=== PATIENT | male | born 1975 | race Caucasian/White ===

== ENCOUNTER 2018-07-18 08:51 | Observation (INO) ==
[2018-07-18] MEDS ORDERED: 0.9 % Sodium Chloride 1,000 ML IVC ONE (09:40)
[2018-07-18] MEDS ORDERED: Ondansetron 4 MG/2 ML VIAL IVP ONE (09:40)
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
[2018-07-18 10:46] LABS: Basophils # 0.1 K/mcL (0.0-0.2); Basophils % 1.1 %; Eosinophils # 0.6 K/mcL (0.0-0.6); Eosinophils % 10.6 %; Hematocrit 42.9 % (37.5-50.1); Hemoglobin 14.7 g/dL (12.9-16.9); Immature Granulocytes % 0.4 % (0-4); Lymphocytes # 1.5 K/mcL (0.6-4.6); Lymphocytes % 28.6 %; Mean Corpuscular HGB Conc 34.3 g/dL (31.6-35.5); Mean Corpuscular Hemoglobin 31.5 pg (28.0-33.3); Mean Corpuscular Volume 92.1 fL (83.0-100.0); Mean Platelet Volume 9.5 fL (9.4-12.4); Monocytes # 0.5 K/mcL (0.0-1.3); Monocytes % 9.7 %; Neutrophils # 2.7 K/mcL (1.6-8.9); Platelet Count 195 K/mcL (140-400); Red Blood Count 4.66 M/mcL (4.19-5.50); Red Cell Distribution Width 12.4 % (11.5-14.5); Segmented Neutrophils % 49.6 %
[2018-07-18 10:50] LABS: Prothrombin Time 11.2 Seconds (9.4-12.1)
[2018-07-18 10:53] LABS: Activated Partial Thrombo Time 30.4 Seconds (26.0-36.0)
[2018-07-18 11:07] LABS: Alanine Aminotransferase 31 Units/L (7-52); Albumin 3.7 g/dL (3.5-5.7); Albumin/Globulin Ratio 1.9 (1.1-2.2); Alkaline Phosphatase 34 Units/L (34-104); Aspartate Amino Transferase 25 Units/L (13-39); BUN/Creatinine Ratio 14 (6-26); Bilirubin,Direct 0.1 mg/dL (0.0-0.2); Bilirubin,Indirect 0.3 mg/dL (0.0-1.2); Bilirubin,Total 0.4 mg/dL (0.3-1.0); Blood Urea Nitrogen 13 mg/dL (6-20); Carbon Dioxide 25 mEq/L (23-29); Chloride 109 mEq/L (98-107); Glucose 101 mg/dL (70-105); Osmolality,Calculated 290 (280-300); Sodium 140 mEq/L (136-145); Total Protein 5.7 g/dL (6.4-8.9); eGFR For Non-African Americans > 60 (> 60)
--- NOTE | 2018-07-18 13:34 | Internal Med History&Physical ---
Date of Encounter: 07/18/18 Time of Encounter: 13:00 Internal Medicine - H&P: HPI Chief complaint: Rectal bleeding Admitted From: Home Plans for Post Hospital Care: Home History of present illness: Mr. Walker is a 43 year old male with significant medical history. He reports having hypertension but is not treated for it. He presents to the emergency department with 4 episodes of bright red rectal bleeding this morning. He has had 4 other episodes here. He denies actual pain but states that he is uncomfortable in his lower abdomen. He also reports feeling tired. No chest pain, nausea, vomiting, diarrhea, dizziness or lightheadedness. He denies fever, chills, sick contacts. He denies knowledge of internal or external hemorrhoids. Last EGD was approximately 20 years ago when he was told that he had multiple ulcers. Past Med Surg Social Fam HX - Past Medical History Medical history: no medical history Additional medical history: Says possibly has hypertension Psychiatric history: no psych history - Past Surgical History Surgical History: no surgical history Additional surgical history: Bowel obstruction - Social History Smoking Status: Never smoker Smokeless Tobacco Status: No Alcohol use: occasionally Drug use: none Internal Medicine - H&P: Meds Diclofenac Sodium [Voltaren] 50 mg PO BID #30 tablet. 09/09/17 [Rx] Allergy/AdvReac Type Severity Reaction Status Date / Time morphine Allergy Rash Verified 09/09/17 08:58 All Systems PM: A 10-system review of systems was performed and is negative for pertinent findings except as documented above in the HPI. - Constitutional Constitutional: fatigue, no anorexia, no chills, no fever(s), no night sweats, no weakness - EENT Eyes: no blurry vision, no diplopia, no other visual disturbances Ears: no decreased hearing, no ear discharge, no ear pain Nose, mouth and throat: no dental pain, no mouth pain, no nasal congestion, no nasal discharge, no sinus pain, no sinus pressure, no sore throat - Cardiovascular Cardiovascular ROS IM: no chest pain, no diaphoresis, no dyspnea, no dyspnea on exertion, no edema, no irregular heart rhythm, no lightheadedness, no palpitations, no syncope - Respiratory Respiratory: no cough, no dyspnea, no hemoptysis, no dyspnea on exertion, no wheezing, no stridor, no chest congestion, no pain with cough - Gastrointestinal Gastrointestinal: melena, no abdominal pain, no change in bowel habits, no change in stool character, no coffee ground emesis, no constipation, no cramping, no diarrhea, no nausea, no vomiting - Genitourinary Genitourinary ROS male: no urinary frequency, no urinary hesitancy, no urinary incontinence, no urinary urgency - Musculoskeletal Musculoskeletal ROS IM: no back pain, no limited range of motion, no numbness, no tingling - Integumentary Integumentary IM: no new lesions, no rash - Neurological Neurological ROS: no abnormal hearing, no abnormal movements, no abnormal speech, no dizziness, no focal weakness, no headache(s), no vertigo - Psychiatric Psychiatric: no anxiety, no depression - Constitutional Vitals: Temp Pulse Resp BP Pulse Ox 98.3 F 96 18 137/110 97 07/18/18 09:04 07/18/18 13:30 07/18/18 13:30 07/18/18 13:30 07/18/18 13:30 General appearance: Present: cooperative, A&O X 3, pleasant, no acute distress, answers questions appropriately Exam: General: Pt resting quietly on bed, no distress. Skin: pwd, no rashes, lesions, redness Neurological: Pt is alert and awake, oriented x 3, Speech is clear, PERRLA, EOMI, no nystagmus, no pronator drift. strength equal x 4 extremities HEENT: mucous mumbranes moist, no conjuctival pallor Neck: supple, no tracheal deviation, no lymphadenopathy, tenderness, no thyromegaly Heart: S1S2 heard without gallops, clicks, murmurs, no bradycardia or tachycardia, pt has no peripheral edema, pedal and radial pulses palpable bilaterally. Lungs: clear throughout without wheezing, rales, or ronchi, respirations are unlabored Abdomen: soft and non tender with bowel sound present, no hepatomegaly. Psych: Normal affect with good eye contact - Head Head exam: Present: atraumatic, normal inspection, normocephalic - Eye Eye exam: Present: EOMI, normal appearance, PERRL. Absent: nystagmus - ENT ENT exam: Present: mucous membranes moist, normal exam, normal external ear exam - Neck Neck exam general surgery: Present: normal inspection. Absent: lymphadenopathy, tenderness - Respiratory Respiratory exam: Present: chest wall tenderness, CTAB. Absent: decreased breath sounds, rales, respiratory distress, rhonchi, stridor, wheezes - Cardiovascular Cardiovascular exam: Present: RRR, +S1, +S2. Absent: diastolic murmur, distant heart sounds, irregular rhythm, systolic murmur - GI/Abdominal GI/Abdominal exam: Present: normal bowel sounds, soft. Absent: hepatomegaly, tenderness - Expanded GI/Abdominal Exam GI/Abdominal exam expanded: Absent: Calderón's sign, Rovsing's sign, tenderness at McBurney's Point - Extremities Exam Extremities exam: Present: full ROM, normal inspection, warm. Absent: calf tenderness, pedal edema, tenderness - Back Exam Back exam: Present: full ROM, normal inspection. Absent: tenderness - Neurological Exam Neurological exam: Present: alert, CN II-XII intact, oriented X3, no focal deficits, strengths equal and symetr throughout. Absent: pronater drift, facial droop, speech deficit - Skin Skin exam: Present: dry, intact, normal color, warm. Absent: petechiae, rash Internal Med - H&P Results - Labs CBC & Chem 7: 07/18/18 10:20 07/18/18 10:22 Labs: Short CBC 07/18/18 Range/Units 10:20 WBC 5.4 (4.3-11.1) K/mcL Hgb 14.7 (12.9-16.9) g/dL Hct 42.9 (37.5-50.1) % Plt Count 195 (140-400) K/mcL Neutrophils # 2.7 (1.6-8.9) K/mcL BMP 07/18/18 10:22 Sodium 140 Potassium 4.0 Chloride 109 H Carbon Dioxide 25 BUN 13 Creatinine 0.90 Glucose 101 Calcium 8.0 L Liver Function 07/18/18 Range/Units 10:22 Total Bilirubin 0.4 (0.3-1.0) mg/dL Direct Bilirubin 0.1 (0.0-0.2) mg/dL AST 25 (13-39) Units/L ALT 31 (7-52) Units/L Alkaline Phosphatase 34 (34-104) Units/L Albumin 3.7 (3.5-5.7) g/dL - Assessment and plan (1) Hypertension Current Visit: Yes Status: Acute Assessment and plan: Chronic hypertension. Untreated. Lisinopril 5mg po daily. Monitor vitals per admission orders. Qualifiers: Hypertension type: unspecified Qualified Code(s): I10 - Essential (primary) hypertension (2) Fatigue Current Visit: Yes Status: Acute Assessment and plan: Fatigue, onset today and likely secondary to rectal bleeding. IVF hydration Monitor H&H Monitor vitals Up with assistance Qualifiers: Fatigue type: unspecified Qualified Code(s): R53.83 - Other fatigue (3) Rectal bleeding Current Visit: Yes Status: Acute Assessment and plan: 4 episodes of bright red bleeding at home, 4 here in the ED today. No prior history of same. Hgb currently stable, vitals stable. Monitor H&H, vitals Consult GI for EGD- NPO after midnight Stool occult blood Transfuse if Hgb < 7.0 (4) DVT prophylaxis Current Visit: Yes Status: Acute Assessment and plan: SCDs, no pharmacologic prophylaxis due to GIB. - Time Spent With Patient Total time spent is greater than 50% in coordination of care (as documented) at patient's floor/unit and/or counseling patient:
[2018-07-18] MEDS ORDERED: Naloxone 0.4 MG/ML INJ IVP PRN (13:49)
[2018-07-18] MEDS ORDERED: Acetaminophen 325 MG TABLET PO PRN (13:49)
[2018-07-18] MEDS ORDERED: Ondansetron 4 MG/2 ML VIAL IVP PRN (13:53)
--- NOTE | 2018-07-18 14:05 | Event Note ---
Date of Encounter: 07/18/18 Time of Encounter: 13:00 Chart reviewed, discussed with Dr Grant. Will prep for colonoscopy tomorrow. Full consult tomorrow.
[2018-07-18] MEDS: 0.9 % Sodium Chloride 1,000 ML IVC SCH (16:27)
[2018-07-18] MEDS ORDERED: SODIUM CHLORIDE/NAHCO3/KCL/PEG 4,000 ML SOLN.RECON PO ONE (17:00)
[2018-07-18 17:54] LABS: Hematocrit 40.7 % (37.5-50.1); Hemoglobin 14.2 g/dL (12.9-16.9)
[2018-07-18 22:39] LABS: Hematocrit 40.5 % (37.5-50.1); Hemoglobin 13.6 g/dL (12.9-16.9)
--- NOTE | 2018-07-18 23:36 | Electrocardiograph Report ---
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
[2018-07-19] MEDS: 0.9 % Sodium Chloride 1,000 ML IVC SCH (05:39)
[2018-07-19 07:31] LABS: Basophils # 0.1 K/mcL (0.0-0.2); Basophils % 1.1 %; Eosinophils # 0.6 K/mcL (0.0-0.6); Eosinophils % 10.6 %; Hematocrit 36.4 % (37.5-50.1); Hemoglobin 12.3 g/dL (12.9-16.9); Immature Granulocytes % 0.4 % (0-4); Lymphocytes # 1.4 K/mcL (0.6-4.6); Lymphocytes % 25.9 %; Mean Corpuscular HGB Conc 33.8 g/dL (31.6-35.5); Mean Corpuscular Hemoglobin 31.7 pg (28.0-33.3); Mean Corpuscular Volume 93.8 fL (83.0-100.0); Mean Platelet Volume 9.6 fL (9.4-12.4); Monocytes # 0.4 K/mcL (0.0-1.3); Monocytes % 8.2 %; Neutrophils # 2.8 K/mcL (1.6-8.9); Platelet Count 176 K/mcL (140-400); Red Blood Count 3.88 M/mcL (4.19-5.50); Red Cell Distribution Width 12.4 % (11.5-14.5); Segmented Neutrophils % 53.8 %
[2018-07-19 07:45] LABS: BUN/Creatinine Ratio 13 (6-26); Blood Urea Nitrogen 14 mg/dL (6-20); Calcium 7.9 mg/dL (8.6-10.3); Carbon Dioxide 24 mEq/L (23-29); Chloride 109 mEq/L (98-107); Glucose 101 mg/dL (70-105); Osmolality,Calculated 289 (280-300); Potassium 4.3 mEq/L (3.5-5.1); Sodium 139 mEq/L (136-145); eGFR For Non-African Americans > 60 (> 60)
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
--- NOTE | 2018-07-19 10:32 | Anesthesia Evaluation PreOp ---
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 09/09/17 [Rx] Allergy/AdvReac Type Severity Reaction Status Date / Time morphine Allergy Rash Verified 09/09/17 08:58 - Meds/Allergy Pre-op Review Medications Reviewed: Yes Allergies Reviewed: Yes Beta Blockers on Current Med List: No Anesthesia Results - Labs 07/19/18 07:14 07/19/18 07:14 - Imaging EKG: report reviewed (Sinus rhythm Nonspecific T wave changes) Anesthesia Exam Selected Entries 07/19/18 10:17 Temperature 98.3 F Pulse Rate 78 Respiratory Rate 15 Blood Pressure 158/106 O2 Sat by Pulse Oximetry 95 Oxygen Delivery Method Room Air Weight: 96kg - HEENT Pupil (Motor): EOMI Mallampati: II Teeth: Normal Oral Opening: Less than or equal to 3 - COMMERCIAL ACCOUNT EXECUTIVE LOC: Oriented COMMERCIAL ACCOUNT EXECUTIVE Motor: Normal RUE, Normal LUE, Normal RLE, Normal LLE, Normal Face COMMERCIAL ACCOUNT EXECUTIVE Sensory: Normal: RUE, LUE, RLE, LLE, Face - Cardiac Rhythm: Regular Murmur: None - Pulmonary Breath Sounds: bilateral Clear Respiratory Effort: Symmetrical Anesthesia Assess/Plan ASA Score: 2 Level of consciousness: Cooperative, Oriented Anesthetic Plan: MAC Monitoring Plan: Standard Monitors Recovery Plan: Other
[2018-07-19] MEDS ORDERED: Lidocaine -MPF 2% 2 ML VIAL ONE (12:54)
[2018-07-19] MEDS ORDERED: Propofol 500 MG/50 ML INFUS..BTL ONE (12:55)
[2018-07-19] MEDS ORDERED: *HR* Propofol 200 MG/20 ML VIAL IVP ONE (13:33)
[2018-07-19] MEDS: 0.9 % Sodium Chloride 500 ML IVC SCH (13:33)
[2018-07-19 15:08] LABS: Hematocrit 33.2 % (37.5-50.1); Hemoglobin 11.4 g/dL (12.9-16.9)
[2018-07-19] MEDS: Pantoprazole 40 MG VIAL IVP SCH ×2 (15:44→20:45)
--- NOTE | 2018-07-19 19:40 | Event Note ---
Date of Encounter: 07/19/18 Time of Encounter: 18:57 Notified by nurse of patient with elevated blood pressure and heart rate. Assessed patient at bedside, heart rate currently 115-120 on monitor. Appears comfortable, no chest pain, shortness of breath, or palpitations. Reports having untreated elevated blood pressure and occasional elevated heart rates. No additional episodes of bloody bowel movements since colonoscopy. Will repeat CBC. Will hold off on any additional blood pressure or heart rate medication until we can ensure any bleeding has stabilized. Nurse to notify of any changes.
[2018-07-19 20:08] LABS: Basophils # 0.1 K/mcL (0.0-0.2); Eosinophils # 0.5 K/mcL (0.0-0.6); Eosinophils % 7.3 %; Hematocrit 33.5 % (37.5-50.1); Hemoglobin 11.7 g/dL (12.9-16.9); Immature Granulocytes % 0.6 % (0-4); Lymphocytes # 1.5 K/mcL (0.6-4.6); Lymphocytes % 21.4 %; Mean Corpuscular HGB Conc 34.9 g/dL (31.6-35.5); Mean Corpuscular Hemoglobin 32.1 pg (28.0-33.3); Mean Corpuscular Volume 91.8 fL (83.0-100.0); Mean Platelet Volume 9.6 fL (9.4-12.4); Monocytes # 0.7 K/mcL (0.0-1.3); Monocytes % 9.7 %; Neutrophils # 4.1 K/mcL (1.6-8.9); Platelet Count 175 K/mcL (140-400); Red Blood Count 3.65 M/mcL (4.19-5.50); Red Cell Distribution Width 12.4 % (11.5-14.5)
[2018-07-20 05:37] LABS: Basophils % 0.7 %; Eosinophils # 0.4 K/mcL (0.0-0.6); Eosinophils % 6.4 %; Hematocrit 34.7 % (37.5-50.1); Hemoglobin 11.6 g/dL (12.9-16.9); Immature Granulocytes % 0.5 % (0-4); Lymphocytes # 1.1 K/mcL (0.6-4.6); Lymphocytes % 19.2 %; Mean Corpuscular HGB Conc 33.4 g/dL (31.6-35.5); Mean Corpuscular Hemoglobin 31.2 pg (28.0-33.3); Mean Corpuscular Volume 93.3 fL (83.0-100.0); Mean Platelet Volume 9.4 fL (9.4-12.4); Monocytes # 0.4 K/mcL (0.0-1.3); Monocytes % 7.6 %; Neutrophils # 3.8 K/mcL (1.6-8.9); Platelet Count 151 K/mcL (140-400); Red Blood Count 3.72 M/mcL (4.19-5.50); Red Cell Distribution Width 12.5 % (11.5-14.5); Segmented Neutrophils % 65.6 %
[2018-07-20] MEDS: Pantoprazole 40 MG VIAL IVP SCH (05:44)
[2018-07-20] MEDS: 0.9 % Sodium Chloride 500 ML IVC SCH (05:47)
[2018-07-20 05:54] LABS: BUN/Creatinine Ratio 13 (6-26); Blood Urea Nitrogen 15 mg/dL (6-20); Calcium 8.2 mg/dL (8.6-10.3); Carbon Dioxide 26 mEq/L (23-29); Chloride 110 mEq/L (98-107); Glucose 122 mg/dL (70-105); Osmolality,Calculated 298 (280-300); Potassium 4.1 mEq/L (3.5-5.1); Sodium 143 mEq/L (136-145); eGFR For Non-African Americans > 60 (> 60)
[2018-07-20] MEDS ORDERED: amLODIPine 5 MG TABLET PO SCH (09:00)
--- NOTE | 2018-07-20 10:09 | Discharge Summary ---
<GiancarloSun - Last Filed: 07/20/18 10:19> - NOTES TO OUTPATIENT PROVIDER Notes to Outpatient Provider: Hgb 14.7 on admit and stabilized at 11.4-11.7 on serial checks in 24hrs prior to discharge. He will require outpt follow up of rectal bleeding and will benefit from further work up outpt. Recommend CBC at follow up with PCP to confirm hgb uptrending further. Did not require blood transfusion this admission and no further bleeding. Orders not resulted at time of discharge: Pending orders 07/19/18 13:36 Surgical Pathology [PTH] Routine Date of Encounter: 07/20/18 - Discharge Diagnosis (1) Rectal bleeding Status: Acute (2) Fatigue Status: Acute Qualifiers: Fatigue type: other Qualified Code(s): R53.83 - Other fatigue (3) Hypertension Status: Chronic Qualifiers: Hypertension type: essential hypertension Qualified Code(s): I10 - Essential (primary) hypertension (4) DVT prophylaxis Status: Acute Hospital course: Mr. Walker is a 43 year old male - Time Spent with Patient Total time spent providing and/or coordinating discharge services: Greater than 30 minutes (35 min) - Discharge Medications Prescriptions: amLODIPine [Norvasc] 5 mg PO DAILY #14 tablet Home Medications: amLODIPine [Norvasc] 5 mg PO DAILY #14 tablet 07/20/18 [Rx] Allergies/Adverse Reactions: Allergy/AdvReac Type Severity Reaction Status Date / Time morphine Allergy Hives Verified 07/19/18 13:08 Date of admission: 07/18/18 13:49 Primary care physician: PCP NONE Consults: 07/18/18 13:55 Consult to Gastroenterology [CONS] Stat Consulting Provider: [facility] [place] Reason for Consult: rectal bleeding spoke with FREDDIE Ray midnignt Time Notified: 13:55 Call Completed: Yes - Constitutional Vitals: Temp Pulse Resp BP Pulse Ox 98.5 F 85 16 155/102 97 07/20/18 10:15 07/20/18 10:15 07/20/18 10:15 07/20/18 10:15 07/20/18 10:15 - Patient Status Disposition: Home, Self-Care Condition: Good - Discharge Instructions Follow Up With: NONE,PCP [Primary Care Provider] - Yessica Grant MD [Partnered Physician] - (Web request entered. Office will call patient at home with date and time of appointment. thank you) Additional Instructions: Please follow up with a PCP with a week. Keep monitor your blood pressure and take your new prescription of amlodipine as prescribed. It is recommended you have a blood count checked at your follow up appt - Diet and Activity Diet: low salt diet - Attending Attestation I examined this patient and my medical decision-making was reviewed with the Resident Physician Dr Diaz. I agree with the documented findings, disposition and treatment plan as described except to the extent set forth below. Mr Walker was observed for multiple episodes of brbpr which have since stopped. GI preformed cscope that showed non bleeding polyps. His hgb has stabilized and he is being dc ot home with outpt fu. awake, family at bedside. very eager for discharge. feeling well, back to baseline. no further bleeding. no abd pain or cramping. denies lightheadedness, dizziness, fatigue or sob. no cp or headache when bp elevated. agreeable to initating bp med and following up with pcp for further bp management. gen- alert, awake,appears stated age eyes- pupils equal round , no conjunctival pallor cv- reg rate and rhythm, no le edema lungs- ctabl, normal resp effort abd- soft, non tender, non distended skin- warm, dry no pallor neuro- AAOx3 GIB, resolved without intervention- hemodynamically stable, hgb now stabilized in last 24 hrs 11.4-11.7 on multiple checks, GI team at bedside and will fu outpt and review path from polyps at that time, further intervention as needed outpt Acute blood loss anemia 2/2 GIB, stable -hgb stable as above, cscope as above, rec for outpt pcp cbc check at follow up appt Elevated BPs without hx htn- initiation of norvasc, monitoring effect, will require outpt fu with pcp for further management further diagnoses and plan as noted by resident time spent on dc 35 min <Faraz Diaz - Last Filed: 07/20/18 13:26> - NOTES TO OUTPATIENT PROVIDER Notes to Outpatient Provider: Patient admitted for multiple episodes of bright red blood per rectum. This has resolved. Underwent colonscopy with findings of multiple polyps and diverticulosis. Hemoglobin stable during admission. Orders not resulted at time of discharge: Pending orders 07/19/18 13:36 Surgical Pathology [PTH] Routine Date of Encounter: 07/20/18 Time of Encounter: 10:07 - Discharge Diagnosis (1) Rectal bleeding Priority: Primary Status: Resolved (2) Fatigue Priority: Secondary Status: Resolved Qualifiers: Fatigue type: other Qualified Code(s): R53.83 - Other fatigue (3) Hypertension Priority: Secondary Status: Chronic Qualifiers: Hypertension type: essential hypertension Qualified Code(s): I10 - Essential (primary) hypertension (4) DVT prophylaxis Priority: Secondary Status: Acute Hospital course: Mr. Walker is a 43 year old male with no past medical history presented to the emergency department with concern of bright red blood per rectum. Patient states that he had approximately 4 episodes prior to admission and another 4 episodes upon presentation. He denies any pain but did admit to some mild cramping. He is never experienced any symptoms like this in the past. He also had initial symptom of fatigue. He denies any previous colonoscopies or did have an EGD approximately 20 years ago which revealed stress ulcers which she states has resolved. On presentation, vital signs were significant for tachycardia at 99 and hypertension at 169/106. Laboratory results on presentation were within normal limits including a stable H/H. He was evaluated by gastroenterology who did perform a colonoscopy on 07/19/18. Results show multiple polyps and diverticulosis without any evidence of diverticulitis. Biopsies were obtained. He said no further episodes of hematochezia. We also did add on a medication of amlodipine for his high blood pressure. He was instructed to follow-up with a primary care physician within 7 days as well as gastroenterology for his pathology results. Patient voiced understanding at this time is medically stable for discharge. All questions were answered. Discharge discussed with: patient, family, social work - Time Spent with Patient Total time spent providing and/or coordinating discharge services: Date of admission: 07/18/18 13:49 Primary care physician: PCP NONE Consults: 07/18/18 13:55 Consult to Gastroenterology [CONS] Stat Consulting Provider: [facility] [place] Reason for Consult: rectal bleeding spoke with FREDDIE Ray midnignt Time Notified: 13:55 Call Completed: Yes - Constitutional Vitals: Temp Pulse Resp BP Pulse Ox 98.3 F 87 16 155/91 98 07/20/18 06:52 07/20/18 06:52 07/20/18 06:52 07/20/18 06:52 07/20/18 06:52 General appearance: Present: cooperative, A&O X 3, pleasant, no acute distress, answers questions appropriately Exam: Gen.: Vitals noted. No acute distress. AAOx3 HEENT: PERRL/EOMI, oropharynx clear, Normocephalic, atraumatic, MMM Cardiac: RRR, no murmur, +S1/S2 Pulmonary: CTA bilaterally, no wheezes, rales or rhonchi, equal chest expansion Abdomen: soft, nontender, BS noted, no guarding, no rebound. MSK: ROM not assessed, no joint swelling noted Extremities: no BLE edema, nontender calf, no cyanosis or clubbing Neuro: A&Ox3, moves all extremities, no focal deficits Psych: Appropriate mood and behavior - Patient Status Functional capacity at discharge: independent ambulation Overall status at discharge: patient is back to baseline - Diet and Activity Activity: increase activity as tolerated, return to work once cleared by your PCP/specialist Diet: advance to your usual diet, low salt diet Addendum entered and electronically signed by Faraz Diaz DO 07/20/18 15:39: At time of discharge, patient's blood pressure was still moderately elevated at 150s/100s. This was checked multiple times on both arms. I did discuss with the patient the importance of better blood pressure control and he stated that it is because he is anxious and agitated at this time. He and mother who is at bedside also endorse a chronically elevated blood pressure near this level at home. He states he will follow up with PCP on discharge for further management and if he is not discharged today, he will leave against medical advice. We discussed the dangers of uncontrolled HTN and he acknowledged understanding. He will be discharged with prescription of amlodipine in the meantime until he is able to establish with a PCP. Addendum entered and electronically signed by Sun Mondragon DO 07/20/18 15:45: Pt repeat bp after norvasc remained elevated higher than goal, but he was asx and threatening to leave [facility], therefor he was discharged so that he had rx for bp med and he is following up with pcp for further management. He noted to team that is his baseline BP.
[2018-07-20 10:16] VITALS: BP 155/102
--- NOTE | 2018-07-20 10:57 | Event Note ---
<Marlin Yuan - Last Filed: 07/20/18 10:55> Date of Encounter: 07/20/18 Time of Encounter: 09:20 Pt is status post colonoscopy yesterday which showed diverticulosis, and four colon polyps, pathology remains pending. Recommended daily fiber supplements, repeat colonoscopy in 3 years. Follow up as an outpatient as needed. Ok to discharge home per GI standpoint. <Yessica Grant - Last Filed: 07/21/18 08:13> Date of Encounter: 07/20/18 Time of Encounter: 13:30 Patient seen no more bleeding per rectum on examination abdomen is benign. Assessment: Patient with rectal bleeding colon showing colon polyp hemorrhoids and diverticulosis. Recommendation: [id number] Metamucil. Repeat colon 3 years
== END 2018-07-20 14:01 | disposition home or self-care (01) ==
LOC: 3ANU 08:51 → EMEROOARM 08:51 → SUATTDRO 13:49 → 3ANU 15:11
PROVIDERS: ADMIT Student in an Organized Health Care Education/Training Program; ATTEND Internal Medicine